=== PATIENT | female | born 2005 | race Caucasian/White ===

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

== ENCOUNTER 2023-08-29 10:57 | Emergency (ER) | payer MEDICAID ==
[~2023-08-29 10:57] MED LIST: IBUP-1969 PO; ONDA-8 TL
[2023-08-29 11:13] VITALS: BP_SYST 115; PULSE 102; RESP 15; TEMP 97; O2SAT 98
[2023-08-29] MEDS ORDERED: BROM118S61 PO (12:16)
[2023-08-29] MEDS ORDERED: IBUP-1969 PO (12:16)
[2023-08-29 12:27] VITALS: BP_SYST 115; PULSE 102; RESP 15; TEMP 97; O2SAT 98
[2023-08-29 12:47] LABS: COVID19 ANTIGEN SOFIA FIA NEGATIVE (NEGATIVE); INFLUENZA TYPE B NEGATIVE (NEGATIVE)
[2023-08-29 12:51] LABS: INFLUENZA TYPE A Positive (NEGATIVE)
== END 2023-08-29 12:27 | disposition home or self-care (01) ==
LOC: SED 10:57
DX: J02.9 Acute pharyngitis, unspecified (principal); R05.9 Cough, unspecified; M79.10 Myalgia, unspecified site; J34.89 Other specified disorders of nose and nasal sinuses; Z79.899 Other long term (current) drug therapy; Z20.822 Contact with and (suspected) exposure to COVID-19
CPT/HCPCS: 36415; 99283